=== PATIENT | female | born 1985 | race Hispanic/Latino ===

== ENCOUNTER → 2017-05-22 | Outpatient (CLI) | payer OTHER | END | disposition home or self-care (01) | LOC: YCFC.O 16:55 | PROVIDERS: ATTEND Nurse Practitioner Family | DX: R10.32 Left lower quadrant pain (principal) ==

== ENCOUNTER → 2017-05-26 | Outpatient (CLI) | payer OTHER | END | disposition home or self-care (01) | LOC: YCFC.O 08:54 | PROVIDERS: ATTEND Nurse Practitioner Family | DX: R68.89 Other general symptoms and signs (principal) ==

== ENCOUNTER 2017-10-25 18:58 | Emergency (ER) | payer OTHER ==
[2017-10-25 19:16] VITALS: BP 114/74; TEMP 98.4; O2SAT 99
--- NOTE | 2017-10-25 19:38 | RAD ---
EXAM DESCRIPTION: Wrist,Left 3 Views CLINICAL HISTORY: 32 years Female, wrist injury COMPARISON: None. FINDINGS: No fracture or dislocation. Soft tissues are unremarkable. IMPRESSION: No acute abnormality. Electronically signed by: Oliver Chavez MD 10/25/2017 7:36 PM CDT
--- NOTE | 2017-10-25 20:05 | ED.PDOC ---
History of Present Illness - General Chief Complaint: Upper Extremity Injury Stated Complaint: Left wrist pain Time Seen by Provider: 10/25/17 19:18 Source: patient, Vital Signs reviewed Exam Limitations: no limitations - History of Present Illness Initial Comments: hurt her left wrist 4 days ago. She suspects from twisting it. Occurred: last week Pain - Upper Extremity: moderate: Wrist, left Method of Injury: unknown Improving Factors: immobilization - has it in a brace Worsening Factors: movement Associated Symptoms: none Allergies/Adverse Reactions: Allergies NO KNOWN ALLERGY Allergy (Unverified 02/25/13 16:31) Home Medications: Ambulatory Orders Tramadol HCl 50 mg PO Q8HR PRN #10 tab 10/25/17 Review of Systems - Review of Systems Constitutional: States: no symptoms reported Musculoskeletal: States: see HPI, joint pain, muscle pain. Denies: joint swelling, muscle stiffness Skin: States: no symptoms reported Neurological: States: no symptoms reported Past Medical History (General) - Patient Medical History Hx Diabetes: No Surgical History: no surgical history - Female History Patient is a Female of Child Bearing Age (10 -59 yrs old): Yes Patient : No - Triage Comment ED Triage Comment: Using wrist splint for support, but still pain with movement. Family Medical History - Family History Father Family History: Unknown Physical Exam - Physical Exam General Appearance: Alert, Comfortable, No apparent distress Cardiovascular/Respiratory: no respiratory distress Elbow/Forearm Exam: normal inspection, non-tender, no evidence of injury, normal ROM Wrist Exam: normal inspection, no evidence of injury, soft tissue tenderness Hand Exam: normal inspection, non-tender, no evidence of injury Neuro/Tendon: normal sensation, normal motor functions, normal tendon functions , no evidence tendon injury Mental Status: alert, oriented x 3 Skin Exam: normal color, warm/dry Departure - Departure Clinical Impression: Sprain Time of Disposition: 20:02 Disposition: Discharge to Home or Self Care Condition: Excellent Departure Forms: ED Discharge - Pt. Copy, Patient Portal Self Enrollment Instructions: DI for Arm Pain Referrals: Leah Whitehead NP [Primary Care Provider] - 1-2 Weeks Prescriptions: Tramadol HCl 50 mg PO Q8HR PRN #10 tab PRN Reason: Moderate Pain Home Medications: Ambulatory Orders Tramadol HCl 50 mg PO Q8HR PRN #10 tab 10/25/17
== END 2017-10-25 20:13 | disposition home or self-care (01) ==
LOC: ER 18:58
DX: S63.502A Unspecified sprain of left wrist, initial encounter (principal); X50.0XXA Overexertion from strenuous movement or load, initial encounter; Y99.0 Civilian activity done for income or pay; Y92.69 Other specified industrial and construction area as the place of occurrence of the external cause

== ENCOUNTER → 2018-01-12 | Outpatient (CLI) | payer OTHER ==
--- NOTE | 2018-01-12 18:28 | US ---
EXAM DESCRIPTION: Gall Bladder CLINICAL HISTORY: UNSPECIFIED ABDOMINAL PAIN COMPARISON: None Available. TECHNIQUE: Right upper quadrant ultrasound FINDINGS: Pancreas: Visualized portions of the pancreas are unremarkable. Bowel gas obscures some areas. Aorta/inferior vena cava: No aortic aneurysm. Normal inferior vena cava. Liver: The liver is homogeneous in texture with normal echogenicity of the hepatic parenchyma. No focal liver lesion or intrahepatic bile duct dilatation. No liver surface irregularity. Normal appearance of the portal vein and hepatic veins. Gallbladder: Gallbladder appears normal in size with no intraluminal stones or wall thickening. Small gallbladder polyp measures 2 mm in the fundus. Common bile duct: Normal caliber measuring 2.7 mm. Right kidney: Renal length is 9.7 cm. Normal cortical echogenicity. Cortical thickness is normal. No hydronephrosis is seen. No renal mass or shadowing calculus. IMPRESSION: Small gallbladder polyp. Otherwise negative. Electronically signed by: Lionel Ramon MD 01/12/2018 6:26 PM CDT
--- NOTE | 2018-01-12 20:37 | RAD ---
EXAM DESCRIPTION: Abdomen Flat Upright CLINICAL HISTORY: UNSPECIFIED ABDOMINAL PAIN COMPARISON: None TECHNIQUE: AP radiographs of the abdomen supine upright. . FINDINGS: Upright view of the abdomen and lower chest shows no acute infiltrate or pleural effusion. No significant air-fluid levels. No free air under the diaphragms. Minimal gas in the small bowel. Gas filled segments of colon are nondistended. No abnormal radiodense objects overlying the urinary tracts. L3-S1 levoscoliosis is mild. IMPRESSION: No bowel obstruction. No free air. No basilar lung infiltrates. No large radiodense stones in the urinary tracts. Electronically signed by: Kemar Soto MD 01/12/2018 8:36 PM CDT
== END ==
LOC: YCFC.O 13:26
PROVIDERS: ATTEND Family Medicine
DX: R10.9 Unspecified abdominal pain (principal); K82.4 Cholesterolosis of gallbladder

== ENCOUNTER → 2018-02-17 | Outpatient (CLI) | payer MEDICAID | LOC: LAB.O 19:55 | PROVIDERS: ATTEND Obstetrics & Gynecology | DX: Z34.81 Encounter for supervision of other normal pregnancy, first trimester (principal); Z3A.09 9 weeks gestation of pregnancy ==